=== PATIENT | female | born 1975 | race Caucasian/White ===

== ENCOUNTER 2021-08-21 11:15 | Outpatient (CLI) | payer BC | END 2021-08-21 11:16 | disposition home or self-care (01) | LOC: CSHRAD 11:15 | PROVIDERS: ATTEND Family Medicine | DX: R07.2 Precordial pain (principal); R13.19 Other dysphagia; K44.9 Diaphragmatic hernia without obstruction or gangrene; K21.9 Gastro-esophageal reflux disease without esophagitis | CPT/HCPCS: 74220 ==

== ENCOUNTER 2023-08-24 09:01 | Outpatient (CLI) | payer BC ==
[~2023-08-24 09:01] MED LIST: Iopamidol 300 61% 100 ML VIAL FS ONE
== END 2023-08-24 09:02 | disposition home or self-care (01) ==
LOC: CSHCT 09:01
PROVIDERS: ATTEND Physician Assistant Medical
DX: R10.13 Epigastric pain (principal); R10.11 Right upper quadrant pain; J90 Pleural effusion, not elsewhere classified; D35.02 Benign neoplasm of left adrenal gland
CPT/HCPCS: 74170